=== PATIENT | male | born 1970 | race Caucasian/White ===

== ENCOUNTER 2024-07-30 17:01 | Inpatient (IN) | payer OTHER, SELFPAY ==
[2024-07-30 12:47] VITALS: BP 113/89
--- NOTE | 2024-07-30 13:52 | ED.SKININJ ---
HPI-Injury
<Vish Olivas PA-C - Last Filed: 07/30/24 15:29>
General
Chief Complaint: Ear Problem
Source: patient
Exam Limitations: none
Time Seen by Provider: 07/30/24 13:39
History of Present Illness-Injury
Initial Injury comments:
53-year-old male with history of hyperlipidemia presents with worsening right ear pain and swelling starting over the past 2 days with associated fatigue and temperature as high as 102 at home. He notes there was a scratch on the outer part of his
ear. He is not diabetic. He denies a sore throat cough or chest congestion. He does note general myalgias. He took a home COVID and flu test that were negative.
Past History
<JAZ Garnica Last Filed: 07/30/24 15:29>
Past History
ED Past Medical History: None
Phy Exam
<JAZ Garnica Last Filed: 07/30/24 15:29>
Physical Exam
Physical Exam:
General: Well-appearing male no acute respiratory distress
HEENT: Normocephalic atraumatic left ear and ear canal within normal limits. Right outer ear erythematous swollen and tender with induration. The external canal is also swollen. The TM is normal mastoid is nontender. There is some inferior and
preauricular fullness but no abscess or fluctuance. There is no trismus or drooling. Neck is supple otherwise
Heart: Slightly tachycardic
Lungs: Clear no wheeze
Extremities: No cyanosis or edema
Sepsis
<JAZ Garnica Last Filed: 07/30/24 15:29>
Sepsis Screening
Sepsis Assessment: Sepsis Ruled Out
Sepsis Screen
Sepsis Screen: Sepsis Ruled Out
Date: 07/30/24
Time: 15:29
Course
<Vish Olivas PA-C - Last Filed: 07/30/24 15:29>
Orders/Labs/Results
Orders:
Orders
07/30/24 14:12
Complete Blood Count/With Diff Urgent
Comprehensive Metabolic Panel Urgent
Lactic Acid Q4H
Comment: CANCEL 2nd LACTIC ACID IF 1st LACTIC ACID IS LESS THAN 2
07/30/24 15:18
Piperacillin/Tazo 3.375 Gram [Zosyn] 3.375 gram in 50 ml IV NOW
Vancomycin [Vancocin] 2,000 mg 0.9% Sodium Chloride 500 ml [Nss] 500 ml IV NOW
07/30/24 15:19
Acetaminophen [Tylenol] 1,000 mg PO NOW STA
Ketorolac [Toradol] 30 mg IV NOW STA
07/30/24 15:30
Blood Culture Q30M
HONG Source: Blood/Venous
Specimen Description:
07/30/24 16:00
Blood Culture Q30M
HONG Source: Blood/Venous
Specimen Description:
Abnormal Lab Results
07/30/24
14:12
Abs Immat Gran (auto) 0.1 H 10^3/uL
(0-0.05)
Absolute Monos (auto) 0.8 H 10^3/uL
(0.1-0.6)
Immature Gran % 1.5 H %
(0-0.5)
Lymphocytes % 15.4 L %
(20.5-51.1)
Monocytes % 10.1 H %
(1.7-9.3)
Lactic Acid 0.6 L mmol/L
(0.7-2.0)
Total Protein 6.1 L g/dl
(6.3-8.2)
07/30/24 14:12
07/30/24 14:12
Vital Signs
Initial and Last Documented VS:
Initial Vital Signs
Temp Pulse Resp BP Pulse Ox
99.3 F 112 20 113/89 97
07/30/24 12:47 07/30/24 12:47 07/30/24 12:47 07/30/24 12:47 07/30/24 12:47
Last Documented Vital Signs
Temp Pulse Resp BP Pulse Ox
98.4 F 91 16 124/69 99
07/30/24 14:00 07/30/24 14:00 07/30/24 14:00 07/30/24 14:00 07/30/24 14:00
<Arturo Linares, DO - Last Filed: 07/30/24 15:24>
Orders/Labs/Results
Orders:
Orders
07/30/24 14:12
Complete Blood Count/With Diff Urgent
Comprehensive Metabolic Panel Urgent
Lactic Acid Q4H
Comment: CANCEL 2nd LACTIC ACID IF 1st LACTIC ACID IS LESS THAN 2
07/30/24 15:18
Piperacillin/Tazo 3.375 Gram [Zosyn] 3.375 gram in 50 ml IV NOW
Vancomycin [Vancocin] 2,000 mg 0.9% Sodium Chloride 500 ml [Nss] 500 ml IV NOW
07/30/24 15:19
Acetaminophen [Tylenol] 1,000 mg PO NOW STA
Ketorolac [Toradol] 30 mg IV NOW STA
07/30/24 15:30
Blood Culture Q30M
HONG Source: Blood/Venous
Specimen Description:
07/30/24 16:00
Blood Culture Q30M
HONG Source: Blood/Venous
Specimen Description:
Abnormal Lab Results
07/30/24
14:12
Abs Immat Gran (auto) 0.1 H 10^3/uL
(0-0.05)
Absolute Monos (auto) 0.8 H 10^3/uL
(0.1-0.6)
Immature Gran % 1.5 H %
(0-0.5)
Lymphocytes % 15.4 L %
(20.5-51.1)
Monocytes % 10.1 H %
(1.7-9.3)
Lactic Acid 0.6 L mmol/L
(0.7-2.0)
Total Protein 6.1 L g/dl
(6.3-8.2)
07/30/24 14:12
07/30/24 14:12
Vital Signs
Initial and Last Documented VS:
Initial Vital Signs
Temp Pulse Resp BP Pulse Ox
99.3 F 112 20 113/89 97
07/30/24 12:47 07/30/24 12:47 07/30/24 12:47 07/30/24 12:47 07/30/24 12:47
Last Documented Vital Signs
Temp Pulse Resp BP Pulse Ox
98.4 F 91 16 124/69 99
07/30/24 14:00 07/30/24 14:00 07/30/24 14:00 07/30/24 14:00 07/30/24 14:00
<Vish Olivas PA-C - Last Filed: 07/30/24 15:29>
MDM/Problems Addressed
Differential Diagnosis Includes:
Subjective fevers with right ear pain and redness. He is tachycardic at triage. Temperature is 99.3. Consider cellulitis versus abscess. The mastoid is nontender on the right side. Clinically do not suspect mastoiditis.
Given the subjective fevers will check labs and lactic acid.
<Vish Olivas PA-C - Last Filed: 07/30/24 15:29>
*Critical Care Note
Total Time (30-74mins, 75-104mins- exclusive of procedures): Not Applicable
<Vish Olivas PA-C - Last Filed: 07/30/24 15:29>
Update Note
Update Note:
Patient reevaluated labs reviewed normal white count. Discussed with emergency room attending saw the patient as well. Patient describes rigors and temp of 102 at home with cellulitis of the right ear. Concern for more of a systemic infection.
Blood cultures ordered. Vancomycin Zosyn ordered. ED attending spoke with hospitalist for admission.
ED Attending Note
<Vish Olivas PA-C - Last Filed: 07/30/24 15:29>
-
Portions of this chart may have been created with voice recognition software.� Occasional wrong word or��sound alike� substitutions may have occurred due to the inherent limitations of voice recognition software.
<Arturo Linares DO - Last Filed: 07/30/24 15:24>
ED Attending Note
Patient seen and examined by attending physician: Yes
ED Attending Note:
Seen with PA examined independently 53-year-old male with long COVID, presents with fever chills, swollen right ear not diabetic will check culture start on antibiotics to cover MRSA
Discharge Plan
Departure
Patient Disposition: Admit
Date of Disposition: 07/30/24
Time of Disposition: 15:28
Presentation/result/management discussed w/ accepting MD/DO: Hospitalist
Discharge Problem:
Cellulitis of ear
Referrals:
Tamra Lovett CRNP [Family Provider] -
Interventions
Interventions:
*Risk Screen - Suicide Last Done: 07/30/24 12:50
*General Assessment Last Done: 07/30/24 13:17
*Neglect/Abuse Screening Last Done: 07/30/24 13:17
ED- Fall Risk Assessment Last Done: 07/30/24 13:17
Discharge Date and Time
Print Language: LUX[place]
[2024-07-30 14:00] VITALS: BP 124/69
[2024-07-30 14:23] LABS: % Basophils 0.6 % (0-2); % Eosinophils 2.1 % (0-6); % Immature Granulocytes 1.5 % (0-0.5); % Lymphocytes 15.4 % (20.5-51.1); % Monocytes 10.1 % (1.7-9.3); % Neutrophils 70.3 % (42.2-75.2); Absolute Basophils 0.1 10^3/uL (0-0.2); Absolute Eosinophils 0.2 10^3/uL (0-0.7); Absolute Immature Granulocytes 0.1 10^3/uL (0-0.05); Absolute Lymphocytes 1.2 10^3/uL (1.2-3.4); Absolute Monocytes 0.8 10^3/uL (0.1-0.6); Absolute Neutrophils 5.6 10^3/uL (1.4-6.5); Hematocrit 41.1 % (39.0-52.0); Mean Corp Hgb Conc. 34.1 g/dL (33.0-37.0); Mean Corpuscular Hgb 28.9 pg (27.0-31.0); Mean Corpuscular Volume 84.9 fL (80.0-94.0); Mean Platelet Volume 10.2 fL (7.4-10.4); Nucleated Red Blood Cells % 0 % (-); Platelet Count 197 10^3/uL (130-400); Red Blood Cell Count 4.84 10^6/uL (4.70-6.10); Red Cell Dist. Width 13.3 % (11.5-14.5); White Blood Cell Count 7.9 10^3/uL (4.8-10.8)
[2024-07-30 14:39] LABS: Lactic Acid 0.6 mmol/L (0.7-2.0)
[2024-07-30 14:46] LABS: ALT (SGPT) 24 U/L (0-50); AST (SGOT) 25 U/L (17-59); Albumin 4.1 g/dl (3.5-5.0); Alkaline Phosphatase 67 U/L (38-126); Blood Urea Nitrogen 14 mg/dl (9-20); Calcium 9.1 mg/dl (8.4-10.2); Carbon Dioxide 28 mmol/L (22-30); Chloride 102 mmol/L (98-107); Glucose 85 mg/dl (70-99); Potassium 4.4 mmol/L (3.5-5.1); Sodium 136 mmol/L (135-145); Total Bilirubin 0.6 mg/dl (0.2-1.3); Total Protein 6.1 g/dl (6.3-8.2); eGFR > 60.00
[2024-07-30] MEDS: TYLENOL 1000 MG PO (15:36)
[2024-07-30] MEDS: ZOSYN 50 IV (15:37)
[2024-07-30] MEDS: TORADOL 30 MG IV (15:37)
[2024-07-30] MEDS: VANCOCIN 540 MG IV (16:21)
--- NOTE | 2024-07-30 16:43 | HPS.HSE ---
Family Physician
-
Family Physician: Tamra Lovett
Chief Complaint
-
ear pain swelling
History of Present Illness
53 y/o M, hx of 'long COVID', presents to ER with R ear pain and swelling. Patient notes symptoms began perhaps 10 days ago initially with pain/swelling. His noted a bump on the top of the ear which patient might have scratched open. A few days
later he noted fever/chills and facial/neck pressure along with headaches. Denies any recent ear procedures. No ear drainage. This AM, he thought he could have flu or covid but was negative on home testing. Presented to ER for evaluation and started
on IV Abx. Cultures sent. ENT consulted.
Medical History
Past Medical History
Past Medical History: Reports Other (long COVID)
Past Surgical History: Reports None
Social History
Tobacco: Non-smoker
Alcohol: None
Drug: None
Personal:
Family History
Family History: Not pertinent
Allergies / Home Medications
Allergies reflects when Allergies were last updated in [facility].
Home Medications with original date entered in [facility]
Allergy/Medication List:
Allergies
Allergy/AdvReac Type Severity Reaction Status Date / Time
No Known Allergies Allergy Unverified 07/30/24 12:50
Home Medications
bupropion HCl 150 mg 24 hr tablet, extended release (Wellbutrin XL) 300 mg PO DAILY 07/30/24
purilpjgn-QGT-DW-acetaminophen 7.5 mg-60 [id number]/30mL oral liqd 30 ml PO HSPRN PRN cold 07/30/24
escitalopram oxalate 10 mg tablet (Lexapro) 10 mg PO HS 07/30/24
pseudoephedrine-ibuprofen 30 mg-200 mg tablet 1 tab PO DAILYPRN PRN cough 07/30/24
simvastatin 20 mg tablet (Zocor) 20 mg PO HS 07/30/24
trazodone 100 mg tablet 100 mg PO HS 07/30/24
Review of Systems
-
A 12 point ROS was completed and negative except as noted: Yes
Physical Exam
Vital Signs
Vital Signs
Temp Pulse Resp BP Pulse Ox
98.4 F 91 16 124/69 99
07/30/24 14:00 07/30/24 14:00 07/30/24 14:00 07/30/24 14:00 07/30/24 14:00
Physical Exam
General: Appears in Distress and Pain
HEENT: NormoCephalic, Anicteric and Other (Right outer ear erythematous swollen and tender with induration. Swollen external canal. inferior and preauricular fullness. No abscess clinically)
Respiratory: Clear; No Wheezes
Cardiac: S1/S2 and Regular Rhythm
GI: Soft
Musculoskeletal: No Edema
Neuro: AO x 3
Hematologic/Lymphatic: No Lymphadenopathy
Psych: Calm
Laboratory Results
-
07/30/24 14:12
07/30/24 14:12
Laboratory Results
Lactic Acid Cancelled 07/30/24 18:00
Total Bilirubin 0.6 mg/dl (0.2-1.3) 07/30/24 14:12
AST 25 U/L (17-59) 07/30/24 14:12
ALT 24 U/L (0-50) 07/30/24 14:12
Alkaline Phosphatase 67 U/L (38-126) 07/30/24 14:12
Data Reviewed
-
Lab Data: Labs Reviewed by me
Impression/Plan
-
Assessment:
R ear severe cellulitis
- unclear etiology, although patient could have scratched a posterior ear bump. No trauma, procedures. No ear drainage
- ENT consult
- start Vancomycin; check MRSA swab
- start Cefepime
- follow cultures
- pain control
- if worsening, may need imaging
DVT ppx: Mackenzienox
Code: Full
[2024-07-30 17:46] VITALS: BMI 38.6
[2024-07-30 17:52] VITALS: BP 146/88
[2024-07-30] MEDS: STERILE WATER FOR INJECTION 10 ML IV (18:10)
[2024-07-30] MEDS: LOVENOX SC (18:10)
[2024-07-30] MEDS: MAXIPIME 1000 MG IV (18:10)
--- NOTE | 2024-07-30 19:05 | PHA.VAN.IN ---
Assessment
- Assessment
Renal Function: Unknown baseline
Concomitant Antimicrobials: CEFEPIME
- Previous Dosing Experience
Previous Regimen: NONE
AUC Dosing Plan
- Dosing Variables
Dosing Weight (kg): 128.9
Dosing CrCl (ml/min): 100
Vd coefficient (L/kg): 0.6
- Empiric Dosing
Initial / Loading Dose: 2GM
Maintenance Regimen: 1500MG IV Q12H
Estimated AUC (mcg*h/mL): 473
Estimated Peak (mcg*h/mL): 29.9
Estimated Trough (mcg/ml): 11.9
Estimated Half Life (H): 7.9
Pharmacokinetics Vancomycin I
- -
Patient Age: 53
Patient Sex: Male
Vancomycin Day #: 1
Indication: Skin And Soft Tissue ([R] EAR CELLULITIS)
Requesting Provider: ALETHA
Height / Weight:
Height 6 ft
Actual Weight 128.934 kg
Pertinent Past Medical History: LONG COVID
- Vital Signs / Lab Results
Temp Pulse Resp BP Pulse Ox
98.2 F 82 16 146/88 98
07/30/24 17:52 07/30/24 17:52 07/30/24 17:52 07/30/24 17:52 07/30/24 17:52
Lab Results - Hematology
07/30/24
14:12
WBC 7.9
Lab Results - Chemistry
07/30/24
14:12
BUN 14
Creatinine 1.2
Albumin 4.1
07/30/24 07/30/24
14:12 18:00
Lactic Acid 0.6 L Cancelled
[2024-07-30] MEDS: TORADOL 15 MG IV (21:59)
[2024-07-30] MEDS: LEXAPRO 10 MG PO (22:00)
[2024-07-30] MEDS: TYLENOL 650 MG PO (22:00)
[2024-07-30] MEDS: LIPITOR 10 MG PO (22:00)
[2024-07-30] MEDS: DESYREL 100 MG PO (22:00)
[2024-07-30 23:34] VITALS: BP 120/80
[2024-07-31] MEDS: MAXIPIME 1000 MG IV ×4 (02:47→21:57)
[2024-07-31] MEDS: STERILE WATER FOR INJECTION 10 ML IV ×4 (02:49→21:57)
[2024-07-31] MEDS: VANCOCIN 530 MG IV ×2 (05:52→18:23)
[2024-07-31 06:45] LABS: Mean Corp Hgb Conc. 34.1 g/dL (33.0-37.0); Mean Corpuscular Hgb 29.5 pg (27.0-31.0); Mean Corpuscular Volume 86.3 fL (80.0-94.0); Mean Platelet Volume 10.8 fL (7.4-10.4); Platelet Count 181 10^3/uL (130-400); Red Blood Cell Count 4.75 10^6/uL (4.70-6.10); Red Cell Dist. Width 13.4 % (11.5-14.5); White Blood Cell Count 7.7 10^3/uL (4.8-10.8)
[2024-07-31 07:11] LABS: Blood Urea Nitrogen 15 mg/dl (9-20); Calcium 8.9 mg/dl (8.4-10.2); Carbon Dioxide 27 mmol/L (22-30); Chloride 104 mmol/L (98-107); Estimated Creatinine Clearance 100 ml/min; Glucose 85 mg/dl (70-99); Potassium 4.3 mmol/L (3.5-5.1); Sodium 139 mmol/L (135-145); eGFR > 60.00
--- NOTE | 2024-07-31 08:15 | CON.MD ---
Consultation - Medical
-
Asked to see patient for right sided auricular cellulitis.
Pt seen and full consult dictated.
No need for drainage of any sort.
Should be on antibiotics to cover both Staph and Pseudomonas
[2024-07-31] MEDS: WELLBUTRIN XL (24 hour extended release) 300 MG PO (08:18)
[2024-07-31] MEDS: TYLENOL 650 MG PO ×3 (08:22→22:53)
[2024-07-31] MEDS: TORADOL 15 MG IV ×3 (08:23→22:53)
--- NOTE | 2024-07-31 08:28 | W.PN.ENT ---
Today's Communication
-
As above
Impression / Plan
-
Looking much better.
From our point of view he could be discharged on PO antibiotics appropriate for MRSA
Subjective Data
-
Feeling better, with much less pain
Objective Data
-
Vital Signs
MRSA positive
Temp Pulse Resp BP Pulse Ox
98.6 F 83 20 120/80 98
07/30/24 23:34 07/30/24 23:34 07/30/24 23:34 07/30/24 23:34 07/30/24 23:34
Intake & Output
07/30/24 07/31/24 08/01/24
06:59 06:59 06:59
Intake:
Oral fluids 480 / 480
Other:
Number of approximated MODERATE 1
amounts of urine
Lab Results
07/31/24 06:11
07/31/24 06:11
Calcium 8.9 mg/dl (8.4-10.2) 07/31/24 06:11
Total Bilirubin 0.6 mg/dl (0.2-1.3) 07/30/24 14:12
AST 25 U/L (17-59) 07/30/24 14:12
ALT 24 U/L (0-50) 07/30/24 14:12
Alkaline Phosphatase 67 U/L (38-126) 07/30/24 14:12
Physical Exam
-
Less cellulitis on nasal dorsum; no abscess.
Intra nasal exam performed with nose debrided of crusts, no abscess reformation.
[2024-07-31 08:39] VITALS: BP 133/87
--- NOTE | 2024-07-31 09:18 | PHA.VAN.FU ---
Vancomycin Assessment / Plan
- Assessment
Renal Function: Stable
WBC's are: WNL
In the past 24 hrs, patient has been: Afebrile
Concomitant Antimicrobials: cefepime
- Dosing Plan
Continue: Vanc 1500mg Q12H
- Monitoring Plan
Trough Level: pre-steady state 08/01 05:30
Estimated CrCl may be overestimated due to BMI, will obtain pre-steady state level to ensure non-toxic
- Follow Up
Pharmacy will continue to follow.
Vancomycin Follow UP
- -
Patient Age: 53
Patient Sex: Male
Vancomycin Day #: 2
Indication: Skin And Soft Tissue
Requesting Provider: Benoit Velazquez
Pertinent Antimicrobial Allergies:
NKDA
Height / Weight:
Height 6 ft
Actual Weight 128.934 kg
Pertinent Past Medical History: BMI ~39
- Vital Signs / Lab Results
Temp Pulse Resp BP Pulse Ox
98.3 F 72 16 133/87 99
07/31/24 08:39 07/31/24 08:39 07/31/24 08:39 07/31/24 08:39 07/31/24 08:39
Lab Results - Hematology
07/30/24 07/31/24
14:12 06:11
WBC 7.9 7.7
Lab Results - Chemistry
07/30/24 07/31/24
14:12 06:11
BUN 14 15
Creatinine 1.2 1.2
Estimated Creat Clear 100
Albumin 4.1
07/30/24 07/30/24
14:12 18:00
Lactic Acid 0.6 L Cancelled
--- NOTE | 2024-07-31 09:32 | W.PN.HOSP.TC ---
Today's Communication/Plan
-
see A/P
Assessment / Plan
Assessment / Plan
HPI: 53 y/o M, hx of 'long COVID', presented to ER with R ear pain and swelling. 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 His noted a bump on the top of the ear which patient might have scratched open.
A few days later he noted fever/chills and facial/neck pressure along with headaches. Denies any recent ear procedures. No ear drainage. Presented to ER for evaluation and started on IV Abx. Cultures sent. ENT consulted.
A/P:
# R ear severe cellulitis, unclear etiology, although patient could have scratched a posterior ear bump.No trauma, procedures. No ear drainage
Appreciate ENT input, recc PO antibiotics appropriate for MRSA
Cont Vancomycin, Cefepime
Blood cultures were sent, follow results
pain control
Pt c/o worsening ear pain and swelling, ID CS
Wound care CS
DVT ppx: Lovenox
Code: Full
Anticipated Discharge: 24 - 48 hours
Subjective/Interval History
-
Date of Service: July 31, 2024
Objective Data
-
Labs:
Laboratory Results
07/31/24
06:11
WBC 7.7
Hgb 14.0
Hct 41.0
Plt Count 181
Sodium 139
Potassium 4.3
Chloride 104
Carbon Dioxide 27
BUN 15
Creatinine 1.2
Glucose 85
Calcium 8.9
Vital Signs:
Vital Signs
Temp Pulse Resp BP Pulse Ox
36.8 C 72 16 133/87 99
07/31/24 08:39 07/31/24 08:39 07/31/24 08:39 07/31/24 08:39 07/31/24 08:39
I&O
07/30/24 07/31/24 08/01/24
06:59 06:59 06:59
Intake Total 480 / 480
Balance 480 / 480
Review of Systems
-
EENT: Reports Other (R ear swelling and worsening pain ); Denies Hearing Loss
Physical Exam
-
General: Well Developed, Well Nourished, No Apparent Distress, Comfortable and Conversant; Negative Respiratory Distress
HEENT: Normocephalic, Atraumatic, Nose Appears Normal and Other (R ear redness and swollen ); Negative Hearing Impaired or Oxygen
Respiratory: Clear to Auscultation and Non Labored Respirations; Negative Accessory Resp Muscle Use
Cardiac: Regular Rhythm and S1/S2
GI: Soft, Nontender, Nondistended and Normal Bowel Sounds
Neuro: Awake, Alert, Oriented and AO x 3
Psych: Calm and Intact Judgement/Insight
Data Reviewed
-
Labs: Labs Reviewed by me
[2024-07-31 15:00] VITALS: BP 152/83
--- NOTE | 2024-07-31 15:46 | CON.ID ---
Consultation
-
Date/Time Consultation Requested: 07/31/24 9:43
Date/Time Consultation Performed: 07/31/24 15:47
Requesting Provider: Dr Moran
Performing Provider: Dr Hagan
Reason for Consultation: ear pain swelling
Chief Complaint / Past History
Chief Complaint
ear pain swelling
History of Present Illness
Mr Burks is a 53 year old male with history notable for long covid, class II obesity who presented here on 07/30 for right ear pain and swelling of 10 days duration. Symptoms began with a pimple which he scratched. The with fevers, chills, facial
and neck pressure, also headaches. No procedures on the ear or drainage.
Since arrival here he has been afebrile, bp stable, wbc initially 7.9 now 7.7, hgb 14, plt 181, no L shift, cr 1.2 unknown baseline, lactic acid 0.6, no imaging done, blood cultures x2 no growth to date
Past History
Additional Past Medical History:
HLD
Past Surgical History: None
Allergy History:
No Known Allergies Allergy (Unverified 07/30/24 12:50)
Medications Reviewed: Yes
Social History
Tobacco: Non-Smoker
Alcohol: None
Drug: None
Family History
Family History: Not Pertinent
Review of Systems
Review of Systems
General: Negative Fever or Chills
All systems: All other systems were reviewed and were negative
Vital Signs
Temp Pulse Resp BP Pulse Ox
98.3 F 72 16 133/87 99
07/31/24 08:39 07/31/24 08:39 07/31/24 08:39 07/31/24 08:39 07/31/24 08:39
Physical Exam
Physical Exam
Constitutional: No Acute Distress
Cardiovascular: Regular Rate and S1/S2; Negative Murmur or Rub
Pulmonary: Clear and Symmetric; Negative Wheezes, Rales or Rhonchi
Gastrointestinal: Soft, Non Tender, Non Distended and Normal Bowel Sounds
Skin: Warm and Dry; Negative Rash or Jaundice
Lab / Diagnostic Study Results
07/31/24 06:11
07/31/24 06:11
Abs Immat Gran (auto) 0.1 10^3/uL (0-0.05) H 07/30/24 14:12
Absolute Neuts (auto) 5.6 10^3/uL (1.4-6.5) 07/30/24 14:12
Absolute Lymphs (auto) 1.2 10^3/uL (1.2-3.4) 07/30/24 14:12
Absolute Monos (auto) 0.8 10^3/uL (0.1-0.6) H 07/30/24 14:12
Absolute Basos (auto) 0.1 10^3/uL (0-0.2) 07/30/24 14:12
Immature Gran % 1.5 % (0-0.5) H 07/30/24 14:12
Neutrophils % 70.3 % (42.2-75.2) 07/30/24 14:12
Lymphocytes % 15.4 % (20.5-51.1) L 07/30/24 14:12
Monocytes % 10.1 % (1.7-9.3) H 07/30/24 14:12
Eosinophils % 2.1 % (0-6) 07/30/24 14:12
Basophils % 0.6 % (0-2) 07/30/24 14:12
Lactic Acid Cancelled 07/30/24 18:00
Microbiology Results
Micro:
07/30/24 15:29 Blood Culture - Preliminary
Blood/Venous No Growth in 24 hours- Final report to follow
07/30/24 15:29 Blood Culture - Preliminary
Blood/Venous No Growth in 24 hours- Final report to follow
Assessment / Plan
External Otitis
DOROTHY vs CKD
Class II obesity
- agree with coverage for MRSA and pseudomonas
- check QTc
- a1c in the AM
- follow blood cultures
- agree no abscess to culture at this time
- I generally prefer cefepime to ceftazidime as it has a higher barrier to resistance, ultimately both reasonable drugs - dosing optimized
- agree with vancomycin
- anticipate eventual transition to oral therapy (likely doxycycline and levaquin pending qtc)
[2024-07-31] MEDS: LOVENOX SC (18:23)
[2024-07-31] MEDS: LIPITOR 10 MG PO (21:57)
[2024-07-31] MEDS: DESYREL 100 MG PO (21:57)
[2024-07-31] MEDS: LEXAPRO 10 MG PO (21:58)
[2024-07-31 23:17] VITALS: BP 139/78
[2024-08-01] MEDS: MAXIPIME 1000 MG IV ×4 (05:26→21:03)
[2024-08-01] MEDS: STERILE WATER FOR INJECTION 10 ML IV ×4 (05:26→21:03)
[2024-08-01 06:31] LABS: Hematocrit 39.7 % (39.0-52.0); Hemoglobin 13.7 g/dL (13.0-18.0); Mean Corp Hgb Conc. 34.5 g/dL (33.0-37.0); Mean Corpuscular Volume 84.1 fL (80.0-94.0); Mean Platelet Volume 10.6 fL (7.4-10.4); Platelet Count 187 10^3/uL (130-400); Red Blood Cell Count 4.72 10^6/uL (4.70-6.10); Red Cell Dist. Width 13.2 % (11.5-14.5); White Blood Cell Count 7.2 10^3/uL (4.8-10.8)
[2024-08-01 06:40] LABS: Vancomycin Random 11.5 ug/ml
[2024-08-01] MEDS: VANCOCIN 530 MG IV ×2 (06:43→17:55)
[2024-08-01 06:48] LABS: Blood Urea Nitrogen 16 mg/dl (9-20); Carbon Dioxide 26 mmol/L (22-30); Chloride 103 mmol/L (98-107); Estimated Creatinine Clearance 109 ml/min; Glucose 92 mg/dl (70-99); Potassium 3.9 mmol/L (3.5-5.1); Sodium 138 mmol/L (135-145); eGFR > 60.00
[2024-08-01 07:00] VITALS: BP 175/103
[2024-08-01 07:22] LABS: Glycohemoglobin (HgbA1c) 5.8 % (4.0-5.6)
[2024-08-01] MEDS: WELLBUTRIN XL (24 hour extended release) 300 MG PO (09:20)
[2024-08-01] MEDS: TYLENOL 650 MG PO ×2 (09:21→18:01)
[2024-08-01] MEDS: TORADOL 15 MG IV ×2 (09:22→18:01)
[2024-08-01 09:30] VITALS: BP 142/93
--- NOTE | 2024-08-01 09:49 | W.PN.HOSP.TC ---
Today's Communication/Plan
-
see A/P
Assessment / Plan
Assessment / Plan
HPI: 53 y/o M, hx of 'long COVID', presented to ER with R ear pain and swelling. 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 His noted a bump on the top of the ear which patient might have scratched open.
A few days later he noted fever/chills and facial/neck pressure along with headaches. Denies any recent ear procedures. No ear drainage. Presented to ER for evaluation and started on IV Abx. Cultures sent. ENT consulted.
A/P:
# R ear severe cellulitis, unclear etiology, although patient could have scratched a posterior ear bump.No trauma, procedures. No ear drainage
Appreciate ENT input
Cont Vancomycin, Cefepime
ID on board to direct Abx
Blood cultures so far negative
pain control
# Possible essential HTN
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
IV Hydralazine PRN for now
Monitor BP
DVT ppx: Lovenox
Code: Full
Anticipated Discharge: 24 - 48 hours
Subjective/Interval History
-
Date of Service: August 01, 2024
Objective Data
-
Labs:
Laboratory Results
08/01/24 08/01/24
06:08 06:09
WBC 7.2
Hgb 13.7
Hct 39.7
Plt Count 187
Sodium 138
Potassium 3.9
Chloride 103
Carbon Dioxide 26
BUN 16
Creatinine 1.1
Glucose 92
Calcium 9.0
Vital Signs:
Vital Signs
Temp Pulse Resp BP Pulse Ox
36.6 C 85 18 175/103 97
08/01/24 07:00 08/01/24 07:00 08/01/24 07:00 08/01/24 07:00 08/01/24 07:00
I&O
07/31/24 08/01/24 08/02/24
06:59 06:59 06:59
Intake Total 480 / 480 0 0
Balance 480 / 480 0 / 1859
--- NOTE | 2024-08-01 09:59 | PTCARENOTE ---
patient upset this morning about not having 'communication' about plan for the day- reporting nausea, headache and dizziness. patient had ambulated in hallway to find nurse to report above. assisted patient back to room, support given, vitals taken
by tech BP 175/103- patient concerned about elevated BP and headache- support given- Tylenol and tordol given for pain. BP reassessed 142/93. pain relief obtained. plan of care on going.
--- NOTE | 2024-08-01 10:12 | PHA.VAN.FU ---
Vancomycin Assessment / Plan
- Assessment
Renal Function: Stable
WBC's are: WNL
In the past 24 hrs, patient has been: Afebrile
Concomitant Antimicrobials: cefepime
- Assessment - Trough Based Monitoring
Trough Value: 11
Level Today was: Appropriate, At Pre-Steady State
Level Comments: drawn prior to 3rd maintenance dose
- Dosing Plan
Continue: Vanc 1500mg Q12H
- Monitoring Plan
No level(s) ordered at this time: consider peak/trough to assess AUC & half-life in next few days
- Follow Up
Pharmacy will continue to follow.
Vancomycin Follow UP
- -
Patient Age: 53
Patient Sex: Male
Vancomycin Day #: 3
Indication: Skin And Soft Tissue
Requesting Provider: Benoit Velazquez / Dr. Hagan
Pertinent Antimicrobial Allergies:
NKDA
Height / Weight:
Height 6 ft
Actual Weight 128.934 kg
Pertinent Past Medical History: BMI ~39
- Vital Signs / Lab Results
Temp Pulse Resp BP Pulse Ox
97.9 F 85 18 142/93 97
08/01/24 07:00 08/01/24 07:00 08/01/24 07:00 08/01/24 09:30 08/01/24 07:00
Lab Results - Hematology
07/30/24 07/31/24 08/01/24
14:12 06:11 06:09
WBC 7.9 7.7 7.2
Lab Results - Chemistry
07/30/24 07/31/24 08/01/24
14:12 06:11 06:08
BUN 14 15 16
Creatinine 1.2 1.2 1.1
Estimated Creat Clear 100 109
Albumin 4.1
07/30/24 07/30/24
14:12 18:00
Lactic Acid 0.6 L Cancelled
Microbiology Results
07/30/24 15:29 Blood Culture - Preliminary
Blood/Venous No Growth in 24 hours- Final report to follow
07/30/24 15:29 Blood Culture - Preliminary
Blood/Venous No Growth in 24 hours- Final report to follow
Therapeutic Drug Monitoring
Vancomycin Trough 11.0 ug/ml (5-20) 08/01/24 06:08
Random Vancomycin 11.5 ug/ml 08/01/24 06:08
--- NOTE | 2024-08-01 11:25 | W.PN.ENT ---
Today's Communication
-
seen at bedside
Impression / Plan
-
Looking much better.
From our point of view he could be discharged on PO antibiotics appropriate for MRSA
follow up in office as needed
Subjective Data
-
Feeling better, with much less pain
swelling decreased
Objective Data
-
Vital Signs
Temp Pulse Resp BP Pulse Ox
97.9 F 85 18 142/93 97
08/01/24 07:00 08/01/24 07:00 08/01/24 07:00 08/01/24 09:30 08/01/24 07:00
Intake & Output
07/31/24 08/01/24 08/02/24
06:59 06:59 06:59
Intake:
Oral fluids 480 / 480 1860 / 1860 420 / 420
Other:
Number of approximated MODERATE 1 2 1
amounts of urine
Lab Results
08/01/24 06:09
08/01/24 06:08
Calcium 9.0 mg/dl (8.4-10.2) 08/01/24 06:08
Total Bilirubin 0.6 mg/dl (0.2-1.3) 07/30/24 14:12
AST 25 U/L (17-59) 07/30/24 14:12
ALT 24 U/L (0-50) 07/30/24 14:12
Alkaline Phosphatase 67 U/L (38-126) 07/30/24 14:12
Physical Exam
-
swelling decreased
redness decreased
Chest: Clear
Respiratory: Clear
Data Reviewed
-
Radiology Results: Report Reviewed
Micro Results: Report Reviewed
--- NOTE | 2024-08-01 11:53 | WOUNDNOTE ---
Addendum entered by Jaci Ray RN 08/01/24 11:53:
Right Ear
Original Note:
--- NOTE | 2024-08-01 11:54 | WOUNDNOTE ---
WOC RN NOTE: Reviewed chart and met with patient. Patient admitted with right ear cellulitis. Upon assessment a small red area is noted. Patient denies drainage or pain and the reddened area is closed. No needs at this time. Will sign off.
[2024-08-01 11:59] VITALS: BP 148/91
[2024-08-01 15:00] VITALS: BP 152/90
--- NOTE | 2024-08-01 15:13 | W.PN.ID1 ---
Date of Service
Date of Service: August 01, 2024
Today's Communication
- on dc can transition to ciprofloxacin 750 mg PO BID and doxycycline 100 mg po BID x14 days total; likely stable for dc in the next one-two days
- follow up with ENT
Assessment / Plan
External Otitis
DOROTHY vs CKD
Class II obesity
- agree with coverage for MRSA and pseudomonas
- check QTc
- a1c prediabetic
- blood cultures NGTD
- agree no abscess to culture at this time
- c/w cefepime and vancomycin
- agree with vancomycin
- on dc can transition to ciprofloxacin 750 mg PO BID and doxycycline 100 mg po BID x14 days total; likely stable for dc in the next one-two days
- follow up with ENT
Chief Complaint
-: Other (external otitis)
Vital Signs / Physical Exam
Vital Signs
Vital Signs
Temp Pulse Resp BP Pulse Ox
97.9 F 71 18 148/91 97
08/01/24 07:00 08/01/24 11:59 08/01/24 07:00 08/01/24 11:59 08/01/24 07:00
Physical Exam
Constitutional: No Acute Distress
Head: Other (ear less erythema, tenderness and warmth - not yet resolved)
Cardiovascular: Regular Rate and S1/S2; Negative Murmur or Rub
Pulmonary: Clear and Symmetric; Negative Wheezes or Rales
Gastrointestinal: Soft, Non Tender, Non Distended and Normal Bowel Sounds
Skin: Warm and Dry; Negative Rash or Jaundice
Objective Data
Lab Data
Lab Results
08/01/24 06:09
08/01/24 06:08
Estimated Creat Clear 109 ml/min 08/01/24 06:08
Lactic Acid Cancelled 07/30/24 18:00
Total Bilirubin 0.6 mg/dl (0.2-1.3) 07/30/24 14:12
AST 25 U/L (17-59) 07/30/24 14:12
ALT 24 U/L (0-50) 07/30/24 14:12
Alkaline Phosphatase 67 U/L (38-126) 07/30/24 14:12
Most recent labs reviewed.
Micro Results:
07/30/24 15:29 Blood Culture - Preliminary
Blood/Venous No Growth in 24 hours- Final report to follow
07/30/24 15:29 Blood Culture - Preliminary
Blood/Venous No Growth in 24 hours- Final report to follow
[2024-08-01] MEDS: LOVENOX 40 MG SC (17:54)
[2024-08-01] MEDS: FLUSH (NSS) 2 FLUSH IV (17:54)
[2024-08-01] MEDS: DESYREL 100 MG PO (21:02)
[2024-08-01] MEDS: LEXAPRO 10 MG PO (21:03)
[2024-08-01] MEDS: LIPITOR 10 MG PO (21:03)
[2024-08-01 23:34] VITALS: BP 111/76
[2024-08-02] MEDS: MAXIPIME 1000 MG IV ×4 (05:19→21:21)
[2024-08-02] MEDS: STERILE WATER FOR INJECTION 10 ML IV ×4 (05:19→21:21)
[2024-08-02] MEDS: VANCOCIN 530 MG IV ×2 (05:19→17:10)
[2024-08-02 06:40] LABS: Hematocrit 41.4 % (39.0-52.0); Mean Corp Hgb Conc. 33.8 g/dL (33.0-37.0); Mean Corpuscular Hgb 28.6 pg (27.0-31.0); Mean Corpuscular Volume 84.5 fL (80.0-94.0); Mean Platelet Volume 10.1 fL (7.4-10.4); Platelet Count 205 10^3/uL (130-400); Red Cell Dist. Width 13.2 % (11.5-14.5); White Blood Cell Count 6.9 10^3/uL (4.8-10.8)
[2024-08-02 07:00] VITALS: BP 146/84
[2024-08-02 07:07] LABS: Blood Urea Nitrogen 18 mg/dl (9-20); Calcium 9.1 mg/dl (8.4-10.2); Carbon Dioxide 28 mmol/L (22-30); Chloride 106 mmol/L (98-107); Estimated Creatinine Clearance 100 ml/min; Glucose 81 mg/dl (70-99); Potassium 4.2 mmol/L (3.5-5.1); Sodium 137 mmol/L (135-145); eGFR > 60.00
--- NOTE | 2024-08-02 07:31 | W.PN.HOSP.TC ---
Today's Communication/Plan
-
Possible DC today versus tomorrow, pending ID recs today
Check ekg today for QTc
Assessment / Plan
Assessment / Plan
HPI: 53 y/o M, hx of 'long COVID', presented to ER with R ear pain and swelling. Patient notes symptoms began perhaps 10 days [employer], initially with pain/swelling. His noted a bump on the top of the ear which patient might have scratched open.
A few days later he noted fever/chills and facial/neck pressure along with headaches. Denies any recent ear procedures. No ear drainage. Presented to ER for evaluation and started on IV Abx. Cultures sent. ENT consulted.
A/P:
# R ear severe cellulitis, unclear etiology, although patient could have scratched a posterior ear bump.No trauma, procedures. No ear drainage
Appreciate ENT input
Cont Vancomycin, Cefepime
ID on board to direct Abx - discuss with ID today regarding disposition-plan will be- On dc, transition to ciprofloxacin 750 mg PO BID and doxycycline 100 mg po BID x14 days
Blood cultures cont to be negative
pain is controlled w improving symptoms
# Possible essential HTN
Pt not on BP med [employer]
IV Hydralazine PRN for now
Monitor BP - stable
#Hga1C 5.8
-discussed pre-diabetes and weight loss w the patient
#Long COVID
DVT ppx: Lovenox
Code: Full
Anticipated Discharge: Within 24 hours
Subjective/Interval History
-
Date of Service: August 02, 2024
No acute events over night. The ear is less red today, less swollen. No fevers. No n/v/d.
Objective Data
-
Labs:
Laboratory Results
08/02/24
06:23
WBC 6.9
Hgb 14.0
Hct 41.4
Plt Count 205
Sodium 137
Potassium 4.2
Chloride 106
Carbon Dioxide 28
BUN 18
Creatinine 1.2
Glucose 81
Calcium 9.1
Vital Signs:
Vital Signs
Temp Pulse Resp BP Pulse Ox
98.3 F 79 21 111/76 96
08/01/24 23:34 08/01/24 23:34 08/01/24 23:34 08/01/24 23:34 08/01/24 23:34
I&O
08/01/24 08/02/24 08/03/24
06:59 06:59 06:59
Intake Total 1859 1380 / 1380
Balance 1859 1380 / 1380
Review of Systems
-
History Source: Patient
All other systems: Reviewed and negative
Physical Exam
-
General: Well Developed, Well Nourished, No Apparent Distress and Comfortable
HEENT: Normocephalic and Atraumatic
Respiratory: Clear to Auscultation
Cardiac: Regular Rhythm and S1/S2
GI: Soft, Nontender, Nondistended and Normal Bowel Sounds
Musculoskeletal: No Clubbing, No Cyanosis and No Edema
Skin: Warm, Dry and Other (right ear erythema, swelling, small area of crusting)
Psych: Calm
[2024-08-02] MEDS: WELLBUTRIN XL (24 hour extended release) 300 MG PO (07:45)
[2024-08-02] MEDS: TYLENOL 650 MG PO ×3 (09:09→21:20)
--- NOTE | 2024-08-02 10:38 | PHA.VAN.FU ---
Vancomycin Assessment / Plan
- Assessment
Renal Function: Stable
WBC's are: WNL
In the past 24 hrs, patient has been: Afebrile
Concomitant Antimicrobials: cefepime
- Assessment - Trough Based Monitoring
Trough Value: 11
Level Comments: pre-steady state - drawn prior to 3rd maint dose
- Dosing Plan
Continue: Vanc 1500 mg q12h
- Monitoring Plan
No level(s) ordered at this time: consider P/T after Sun lilia dose to assess AUC and T 1/2 if pt still on.
- Follow Up
Pharmacy will continue to follow.
Vancomycin Follow UP
- -
Patient Age: 53
Patient Sex: Male
Vancomycin Day #: 4
Indication: Skin And Soft Tissue
Requesting Provider: Benoit Velazquez / Dr. Hagan
Pertinent Antimicrobial Allergies:
NKDA
Height / Weight:
Height 6 ft
Actual Weight 128.934 kg
Pertinent Past Medical History: BMI ~39
- Vital Signs / Lab Results
Temp Pulse Resp BP Pulse Ox
97.7 F 67 16 146/84 97
08/02/24 07:00 08/02/24 07:00 08/02/24 07:00 08/02/24 07:00 08/02/24 07:00
Lab Results - Hematology
07/30/24 07/31/24 08/01/24
14:12 06:11 06:09
WBC 7.9 7.7 7.2
08/02/24
06:23
WBC 6.9
Lab Results - Chemistry
07/30/24 07/31/24 08/01/24
14:12 06:11 06:08
BUN 14 15 16
Creatinine 1.2 1.2 1.1
Estimated Creat Clear 100 109
Albumin 4.1
08/02/24
06:23
BUN 18
Creatinine 1.2
Estimated Creat Clear 100
Albumin
07/30/24 07/30/24
14:12 18:00
Lactic Acid 0.6 L Cancelled
Microbiology Results
07/30/24 15:29 Blood Culture - Preliminary
Blood/Venous No Growth in 48 hours- Final report to follow
07/30/24 15:29 Blood Culture - Preliminary
Blood/Venous No Growth in 48 hours- Final report to follow
Therapeutic Drug Monitoring
Vancomycin Trough 11.0 ug/ml (5-20) 08/01/24 06:08
Random Vancomycin 11.5 ug/ml 08/01/24 06:08
[2024-08-02 15:00] VITALS: BP 127/82
[2024-08-02] MEDS: LOVENOX 40 MG SC (17:11)
[2024-08-02] MEDS: DESYREL 100 MG PO (21:20)
[2024-08-02] MEDS: LIPITOR 10 MG PO (21:20)
[2024-08-02] MEDS: LEXAPRO 10 MG PO (21:20)
[2024-08-02 23:46] VITALS: BP 133/75
[2024-08-03] MEDS: MAXIPIME 1000 MG IV ×2 (05:10→09:56)
[2024-08-03] MEDS: VANCOCIN 530 MG IV (05:11)
[2024-08-03] MEDS: STERILE WATER FOR INJECTION 10 ML IV ×2 (05:11→09:56)
[2024-08-03 07:00] VITALS: BP 119/86
[2024-08-03] MEDS: WELLBUTRIN XL (24 hour extended release) 300 MG PO (07:22)
[2024-08-03 07:34] LABS: % Eosinophils 7.9 % (0-6); % Monocytes 8.6 % (1.7-9.3); % Neutrophils 55.5 % (42.2-75.2); Absolute Basophils 0.1 10^3/uL (0-0.2); Absolute Eosinophils 0.5 10^3/uL (0-0.7); Absolute Immature Granulocytes 0.1 10^3/uL (0-0.05); Absolute Lymphocytes 1.8 10^3/uL (1.2-3.4); Absolute Monocytes 0.6 10^3/uL (0.1-0.6); Absolute Neutrophils 3.7 10^3/uL (1.4-6.5); Hematocrit 41.8 % (39.0-52.0); Hemoglobin 14.4 g/dL (13.0-18.0); Mean Corp Hgb Conc. 34.4 g/dL (33.0-37.0); Mean Corpuscular Volume 84.1 fL (80.0-94.0); Mean Platelet Volume 10.2 fL (7.4-10.4); Nucleated Red Blood Cells % 0 % (-); Platelet Count 223 10^3/uL (130-400); Red Blood Cell Count 4.97 10^6/uL (4.70-6.10); Red Cell Dist. Width 13.1 % (11.5-14.5); White Blood Cell Count 6.7 10^3/uL (4.8-10.8)
[2024-08-03 08:02] LABS: Blood Urea Nitrogen 18 mg/dl (9-20); Carbon Dioxide 25 mmol/L (22-30); Chloride 107 mmol/L (98-107); Estimated Creatinine Clearance 100 ml/min; Glucose 84 mg/dl (70-99); Potassium 4.5 mmol/L (3.5-5.1); Sodium 138 mmol/L (135-145); eGFR > 60.00
--- NOTE | 2024-08-03 09:06 | W.PN.ID1 ---
Date of Service
Date of Service: August 03, 2024
Today's Communication
- can transition to Levofloxacin 750 mg PO daily and doxycycline 100 mg po BID x14 days total through 08/12/24.
Assessment / Plan
Right External Otitis
DOROTHY vs CKD
Class II obesity
- On coverage for MRSA and pseudomonas
- QTc 426
- a1c prediabetic
- blood cultures NGTD
- agree no abscess to culture at this time
- On cefepime and vancomycin 4d
- Per pt hx of intolerance to cipro with QUIJANO, dizziness. Can use levofloxacin, minimal cross-activity.
- can transition to Levofloxacin 750 mg PO daily and doxycycline 100 mg po BID x14 days total through 08/12/24.
- discussed potential C. diff, tendinitis with FQ.
- follow up with ENT
-clean hearing aid prior to each use.
Chief Complaint
-: Other (external otitis)
Subjective / Review of Systems
Feeling much improved. No further ear pain.
Vital Signs / Physical Exam
Vital Signs
Vital Signs
Temp Pulse Resp BP Pulse Ox
97.8 F 68 16 119/86 97
08/03/24 07:00 08/03/24 07:00 08/03/24 07:00 08/03/24 07:00 08/03/24 07:45
Physical Exam
Constitutional: No Acute Distress and Comfortable
Head: Other (No mastoid tenderness. Right ear no edema, no drainage, minimal erythema.)
Cardiovascular: Regular Rate and S1/S2
Pulmonary: Clear
Gastrointestinal: Soft, Non Tender, Non Distended and Normal Bowel Sounds
Extremities: Negative Edema
Neurological: AO x 3
Objective Data
Lab Data
Lab Results
08/03/24 06:45
08/03/24 06:45
Estimated Creat Clear 100 ml/min 08/03/24 06:45
Lactic Acid Cancelled 07/30/24 18:00
Total Bilirubin 0.6 mg/dl (0.2-1.3) 07/30/24 14:12
AST 25 U/L (17-59) 07/30/24 14:12
ALT 24 U/L (0-50) 07/30/24 14:12
Alkaline Phosphatase 67 U/L (38-126) 07/30/24 14:12
Most recent labs reviewed.
Micro Results:
07/30/24 15:29 Blood Culture - Preliminary
Blood/Venous No Growth in 72 hours- Final report to follow
07/30/24 15:29 Blood Culture - Preliminary
Blood/Venous No Growth in 72 hours- Final report to follow
Care Review
Plan reviewed with: Physician (Dr. Romano)
--- NOTE | 2024-08-03 11:44 | W.DCSUMMARY ---
Discharge Summary
Discharge Data
Date of Admission: 07/30/24
Date of Discharge: 08/03/24
Total time spent discharging patient (in min): 35
-
Pending Results: No
Hospital Course
53 y/o M, hx of 'long COVID', presented to ER with R ear pain and swelling. Patient noted that symptoms began 10 days [employer], initially with pain/swelling. His noted a bump on the top of the ear which patient might have scratched open.
A few days later he noted fever/chills and facial/neck pressure along with headaches. He Denied any recent ear procedures, or ear drainage. He was started on IV Abx. Cultures were sent. ENT consulted.
1. Right ear severe cellulitis, unclear etiology, although patient could have scratched a posterior ear bump.No trauma, procedures. No ear drainage
initially received Vancomycin, Cefepime. ID recommended PO Levofloacin and Doxycycline for 14 days.
pain is controlled w improving symptoms
2. Possible essential HTN
Outpatient follow up recommended as well as weight loss.
3. Hga1C 5.8
His treating team discussed pre-diabetes and weight loss w the patient.
4. Long COVID - this is a chronic issue.
DVT ppx during time in hospita was Lovenox
Discharge Plan
-
Patient Disposition: Home (Routine Discharge)
Discharge Diagnosis/Procedures: cellulitis
Condition: Good
Diet: No restrictions
Activity: No restrictions
Driving Restrictions: As prior to admission
Bathing Restrictions: None
Referrals:
Tamra Lovett CRNP [Family Provider] -
Prescriptions:
New
doxycycline hyclate 100 mg Capsule
100 mg PO BID 14 Days Qty: 28 0RF
levofloxacin 750 mg Tablet
750 mg PO DAILY 14 Days Qty: 14 0RF
Continued
trazodone 100 mg Tablet
100 mg PO HS
simvastatin [Zocor] 20 mg Tablet
20 mg PO HS
escitalopram oxalate [Lexapro] 10 mg Tablet
10 mg PO HS
bupropion HCl [Wellbutrin XL] 150 mg Tablet Extended Release 24 Hr
300 mg PO DAILY
Discontinued
DayQuil Sinus Pressure/Pain 30-200 mg Tablet
1 tab PO DAILYPRN PRN (Reason: cough)
NyQuil 7.5-60-30-1,000 mg/30 mL Liquid
30 ml PO HSPRN PRN (Reason: cold )
Discharge Orders:
Discharge Patient (As Directed); Ordered 08/03/24
Ordered By: Damian Romano
Discharge Date and Time
Print Language: SLOVENIAN
--- NOTE | 2024-08-03 11:53 | W.PN.HOSP.TC ---
Today's Communication/Plan
-
Ready for discharge
Assessment / Plan
Assessment / Plan
Patient ready for discharge. Will take PO levaquin 750 aily and po doxy 100 BID for 14 days.
Anticipated Discharge: Today
Subjective/Interval History
-
Date of Service: August 03, 2024
Objective Data
-
Labs:
Laboratory Results
08/03/24
06:45
WBC 6.7
Hgb 14.4
Hct 41.8
Plt Count 223
Sodium 138
Potassium 4.5
Chloride 107
Carbon Dioxide 25
BUN 18
Creatinine 1.2
Glucose 84
Calcium 9.0
Vital Signs:
Vital Signs
Temp Pulse Resp BP Pulse Ox
97.8 F 68 16 119/86 97
08/03/24 07:00 08/03/24 07:00 08/03/24 07:00 08/03/24 07:00 08/03/24 07:45
I&O
08/02/24 08/03/24 08/04/24
06:59 06:59 06:59
Intake Total 1380 / 1380 720 / 720
Balance 1380 / 1380 720 / 720
Review of Systems
-
History Source: Patient
All other systems: Reviewed and negative
Physical Exam
-
General: Well Developed, Well Nourished, No Apparent Distress and Comfortable
HEENT: Normocephalic, Atraumatic and Moist Mucous Membranes
Respiratory: Clear to Auscultation
Cardiac: Regular Rhythm and S1/S2
GI: Soft, Nontender and Nondistended
Skin: Warm and Dry
Neuro: Awake, Alert, Oriented and AO x 3
Psych: Calm
Data Reviewed
-
Labs: Labs Reviewed by me
--- NOTE | 2024-08-03 12:06 | PTCARENOTE ---
Reviewed discharge instructions with patient. Patient verbalizes understanding of all instructions. Reinforced antibiotic usage and need to finish entire prescription. Patient verbalizes understanding of instruction. Peripheral IV removed. Patient
awaiting family to arrive for transport home.
[2024-08-03] MEDS: LEVAQUIN 750 MG PO (12:11)
[2024-08-03] MEDS: VIBRAMYCIN 100 MG PO (12:12)
[2024-08-03 12:24] VITALS: BP 120/80
== END 2024-08-03 12:29 | disposition home or self-care (01) | DRG 566 ==
LOC: 4 EAST ACU 17:01
PROVIDERS: Internal Medicine; Physician Assistant; ADMITTING PHYSICIAN Internal Medicine; ATTENDING PHYSICIAN Internal Medicine; CONSULT PHYSICIAN Otolaryngology Facial Plastic Surgery; CONSULT PHYSICIAN Student in an Organized Health Care Education/Training Program; EMERGENCY PHYSICIAN Emergency Medicine; FAMILY PHYSICIAN Nurse Practitioner Family
DX: H61.011 Acute perichondritis of right external ear (principal); H60.11 Cellulitis of right external ear; E66.812 Obesity, class 2; E78.5 Hyperlipidemia, unspecified; U09.9 Post COVID-19 condition, unspecified; Z68.38 Body mass index [BMI] 38.0-38.9, adult; Z79.899 Other long term (current) drug therapy
CPT/HCPCS: 80048; 80053; 80202; 83036; 83605; 85025; 85027; 87040; 93005; 96365; 96367; 99284

== ENCOUNTER 2025-05-07 06:33 | Day surgery (SDC) | payer OTHER, SELFPAY ==
[2025-04-21 14:06] VITALS: BMI 37.5
[2025-04-21 14:37] LABS: Hematocrit 43.5 % (39.0-52.0); Hemoglobin 14.5 g/dL (13.0-18.0); Mean Corp Hgb Conc. 33.3 g/dL (33.0-37.0); Mean Corpuscular Volume 86.5 fL (80.0-94.0); Platelet Count 226 10^3/uL (130-400); Red Cell Dist. Width 13.4 % (11.5-14.5)
[2025-05-07 08:41] VITALS: BMI 37.5
[2025-05-07 08:58] VITALS: BP 135/76
[2025-05-07] MEDS: NORMOSOL-R/PLASMALYTE-A 1000 IV (09:16)
[2025-05-07 12:30] VITALS: BP 110/65; BP 135/76
[2025-05-07 12:45] VITALS: BP 106/62
[2025-05-07 13:01] VITALS: BP 112/63
[2025-05-07 13:15] VITALS: BP 119/67
[2025-05-07 13:30] VITALS: BP 121/69
== END 2025-05-07 13:52 | disposition home or self-care (01) ==
LOC: SDS 06:33
PROVIDERS: ATTENDING PHYSICIAN Otolaryngology; FAMILY PHYSICIAN Nurse Practitioner Family
DX: J34.3 Hypertrophy of nasal turbinates (principal); J34.89 Other specified disorders of nose and nasal sinuses
CPT/HCPCS: 30140; 30520; 85027; 88300; 88304; 88311; 93005

== ENCOUNTER → 2025-06-12 13:38 | Outpatient (REF) | payer OTHER, SELFPAY | LOC: DHSLP 13:38 | PROVIDERS: ATTENDING PHYSICIAN Otolaryngology; FAMILY PHYSICIAN Nurse Practitioner Family | DX: G47.33 Obstructive sleep apnea (adult) (pediatric) (principal); R09.02 Hypoxemia | CPT/HCPCS: 95800 ==